=== PATIENT | female | born 1985 ===

== ENCOUNTER 2018-02-03 16:36 | Emergency (ER) | payer SELFPAY ==
[2018-02-03] MEDS ORDERED: Lidocaine 2% Inj (20ml) ONE (16:51)
--- NOTE | 2018-02-03 17:12 | C.PDOC ---
History Of Present Illness 33 year old female presents to the emergency department after sustaining a laceration to the left knee following an accident with a razor. Patient states that the razor was placed on a towel, and when the towel fell the razor sliced her knee. Patient states she was able to clean her wound. Time Seen by Provider: 02/03/18 16:46 Chief Complaint (Nursing): Abnormal Skin Integrity History Per: Patient History/Exam Limitations: no limitations Onset/Duration Of Symptoms: Hrs Location Of Injury: Left: Knee Quality Of Symptoms: Other (laceration) Past Medical History Reviewed: Historical Data, Nursing Documentation, Vital Signs Vital Signs: Last Vital Signs Temp 98.1 F 02/03/18 16:51 Pulse 68 02/03/18 16:51 Resp 18 02/03/18 16:51 BP 122/74 02/03/18 16:51 Pulse Ox 100 02/03/18 18:36 - Medical History PMH: No Chronic Diseases Surgical History: No Surg Hx Family History: States: No Known Family Hx - Social History Hx Alcohol Use: No Hx Substance Use: No - Immunization History Hx Tetanus Toxoid Vaccination: Yes (2013) Hx Influenza Vaccination: No Hx Pneumococcal Vaccination: No Review Of Systems Skin: Positive for: Other (laceration to the left knee) Physical Exam - Physical Exam Appears: Non-toxic, No Acute Distress Skin: Warm, Dry Head: Atraumatic, Normacephalic Eye(s): bilateral: Normal Inspection Neck: Normal ROM Chest: Symmetrical Extremity: Normal ROM, Other (4cm linear laceration to the anterior left knee, no active bleeding) Neurological/Psych: Oriented x3, Normal Speech ED Course And Treatment O2 Sat by Pulse Oximetry: 100 (RA) Pulse Ox Interpretation: Normal Laceration - Laceration Repair knee Wound Length (In cm): 4 Description Of Wound: Linear, Clean Wound Cleansed With: Sterile Saline Anesthesia: Lidocaine 2% Wound Examination: Irrigated With Saline, No FB With Wound Exploration, No Tendon Injury With Wound Exploration Wound Closure: Suture Suture Technique And Material Used: Interrupted (6), Nylon (3-0) Wound Complexity: Simple Medical Decision Making Medical Decision Making: Laceration repair by PA. Patient tolerated well. Bacitracin and dressing applied. Patient instructed on wound care. Advised to return for suture removal in 10 days. Disposition Counseled Patient/Family Regarding: Diagnosis, Need For Followup - Disposition Disposition: HOME/ ROUTINE Disposition Time: 17:10 Condition: STABLE Additional Instructions: In 24 hours remove dressing. May wash gently with soap and water, do not use alcohol or iodine solution. Keep area clean and dry. Change dressing 1-2 times daily. Return to ER if fever occurs, redness or swelling around wound, pus in the wound. Please follow up with your primary doctor, clinic, or urgent care for suture removal in 10-12 days En 24 horas, quite el vendaje. Puede lavarse suavemente con agua y jabn, no use alcohol o solucin de yodo. Mantenga el alisson limpia y seca. Cambie el aderezo 1-2 veces al da. Vuelva a la rosario de emergencias si presenta fiebre, enrojecimiento o hinchazn alrededor de la herida, pus en la herida. Un seguimiento con murphy mdico primario, clnica o atencin urgente para la extraccin de suturas en 10-12 florian. Instructions: Laceration Repair With Stitches (DC) Forms: MMIS (Maltese) Print Language: LATVIAN - Clinical Impression Clinical Impression: Laceration of knee, left - PA / EMB[employer] SYSTEM[employer] SOFTWARE DEVELOPER / Resident Statement MD/DO has reviewed & agrees with the documentation as recorded. - Scribe Statement The provider has reviewed the documentation as recorded by the Scribe (Soto Guo) All medical record entries made by the Scribe were at my direction and personally dictated by me. I have reviewed the chart and agree that the record accurately reflects my personal performance of the history, physical exam, medical decision making, and the department course for this patient. I have also personally directed, reviewed, and agree with the discharge instructions and disposition.
[2018-02-03] MEDS ORDERED: Bacitracin 500 Units/gm Oint Foilpak UD ONE (17:15)
[2018-02-03 17:16] VITALS: BP 122/74; PULSE 68; RESP 18; TEMP 98.1; O2SAT 100
== END 2018-02-03 17:22 | disposition home or self-care (01) ==
LOC: C.ER 16:36
DX: S81.012A Laceration without foreign body, left knee, initial encounter (principal); W45.8XXA Other foreign body or object entering through skin, initial encounter

== ENCOUNTER 2018-02-19 13:27 | Emergency (ER) | payer SELFPAY ==
[2018-02-19 14:10] VITALS: BP 138/80; PULSE 76; RESP 16; TEMP 98.3; O2SAT 100
--- NOTE | 2018-02-19 15:32 | C.PDOC ---
History Of Present Illness 33 y/o female presents to ED for suture removal placed 2 weeks ago to left knee. Contrary to triage patient denies vaginal discomfort and denies new injury , numbness, weakness or any other complaints at this time. Time Seen by Provider: 02/19/18 15:11 Chief Complaint (Nursing): Suture/Staple Removal History Per: Patient History/Exam Limitations: no limitations Onset/Duration Of Symptoms: Days Ago Current Symptoms Are (Timing): Still Present Past Medical History Reviewed: Historical Data, Nursing Documentation, Vital Signs Vital Signs: Last Vital Signs Temp 98.3 F 02/19/18 14:08 Pulse 76 02/19/18 14:08 Resp 16 02/19/18 14:08 BP 138/80 02/19/18 14:08 Pulse Ox 100 02/19/18 21:17 - Medical History PMH: No Chronic Diseases Surgical History: No Surg Hx Family History: States: No Known Family Hx - Social History Hx Alcohol Use: No Hx Substance Use: No - Immunization History Hx Tetanus Toxoid Vaccination: Yes (2013) Hx Influenza Vaccination: No Hx Pneumococcal Vaccination: No Review Of Systems Constitutional: Negative for: Fever, Chills Musculoskeletal: Negative for: Leg Pain Skin: Negative for: Rash Neurological: Negative for: Weakness, Numbness Physical Exam - Physical Exam Appears: Non-toxic, No Acute Distress Skin: Warm, Dry, No Rash Extremity: Capillary Refill (<2 seconds), No Deformity, Other (6 well healed intact sutures to distal anterior left thigh, no surrounding erythema) Neurological/Psych: Oriented x3, Normal Speech, Normal Cognition, Normal Motor, Normal Sensation ED Course And Treatment O2 Sat by Pulse Oximetry: 100 (RA) Pulse Ox Interpretation: Normal Medical Decision Making Medical Decision Making: six sutures removed, no complications, some crusty skin at edges, no signs of infection. bacitracin and bandage applied. Disposition - Disposition Disposition: HOME/ ROUTINE Disposition Time: 15:33 Condition: GOOD Additional Instructions: Por favor, mantenga la herida limpia y seca. Todava se sanar desde adentro por algunas semanas y estar sensible. Aplique ungento de bacitracina al exterior. Cuando est al sandra, aplique protector solar. Prescriptions: Bacitracin OINT 1 applic TOP BID #1 tube Instructions: Stitches Removal Forms: Gen Discharge Inst Irish, [employer] (Irish) Print Language: PASHTO - Clinical Impression Clinical Impression: Removal of suture - PA / ICU RN / Resident Statement MD/DO has reviewed & agrees with the documentation as recorded. - Scribe Statement The provider has reviewed the documentation as recorded by the Scribbernie Johnson All medical record entries made by the Sevenibbernie were at my direction and personally dictated by me. I have reviewed the chart and agree that the record accurately reflects my personal performance of the history, physical exam, medical decision making, and the department course for this patient. I have also personally directed, reviewed, and agree with the discharge instructions and disposition.
[2018-02-19] MEDS ORDERED: Bacitracin 500 Units/gm Oint Foilpak UD TOP ONE (15:33)
== END 2018-02-19 15:39 | disposition home or self-care (01) ==
LOC: C.ER 13:27
DX: Z48.02 Encounter for removal of sutures (principal)